=== PATIENT | female | born 1990 | race Caucasian/White ===

== ENCOUNTER → 2019-12-10 | Emergency (ER) | payer MEDICAID ==
[~2019-12-10] VITALS: Ht 167.6 cm; Wt 72.6 kg
[2019-12-10 01:47] VITALS: BP 125/90
[2019-12-10 02:21] LABS: Urine Bacteria FEW /hpf (None Seen); Urine Blood Negative /uL (Negative); Urine Mucus FEW (None Seen); Urine Specific Gravity 1.013 (1.001-1.035); Urine WBC 1 /hpf (0 - 5)
== END | disposition left against medical advice (07) ==
LOC: EDBD 01:11 → ER 01:11
DX: R10.9 Unspecified abdominal pain (principal); Z53.21 Procedure and treatment not carried out due to patient leaving prior to being seen by health care provider
CPT/HCPCS: 74176; 81001

== ENCOUNTER 2022-09-09 19:37 | Emergency (ER) | payer MEDICAID | END 2022-09-09 23:16 | disposition left against medical advice (07) | LOC: ER 19:37 | DX: R06.02 Shortness of breath (principal); Z53.21 Procedure and treatment not carried out due to patient leaving prior to being seen by health care provider ==